=== PATIENT | female | born 1950 ===

== ENCOUNTER 2017-02-04 09:08 | Observation (INO) | payer MEDICARE, MEDICAID ==
[2017-02-04 09:08] VITALS: BMI 27.4
[2017-02-04 09:35] VITALS: TEMP 98.3
[2017-02-04] MEDS ORDERED: Morphine 4 mg/ml ISec IVP STA (10:36)
[2017-02-04] MEDS ORDERED: Sodium Chloride 0.9% 500 ML IV STA (10:36)
[2017-02-04] MEDS ORDERED: Morphine 2 mg/ml ISec IVP STA (10:41)
[2017-02-04 10:47] LABS: ADD MANUAL DIFF? NO
[2017-02-04 10:58] LABS: BASO # 0.01 [, K/mm3] (0.0-2.0); BASO % 0.2 % (0.0-3.0); EOS # 0.1 (0.0-0.7); EOS % 1.4 % (1.5-5.0); GRAN # 3.24 (1.4-6.5); GRAN % 62.7 % (50.0-68.0); HEMATOCRIT 37.5 % (36.0-48.0); LYMPH # 1.4 (1.2-3.4); LYMPH % 27.9 % (22.0-35.0); MEAN CELL VOLUME 86.2 fL (80.0-105.0); MEAN CORPUSCULAR HEMOGLOBIN 28.5 pg (25.0-35.0); MEAN CORPUSCULAR HGB CONC 33.1 g/dl (31.0-37.0); MONO # 0.4 (0.1-0.6); MONO % 7.8 % (1.0-6.0); PLATELET COUNT 141 [, 10^3/uL] (120.0-450.0); WHITE BLOOD COUNT 5.2 [, 10^3/ul] (4.5-11.0)
[2017-02-04 11:01] LABS: ALB/GLOB RATIO 1.1 (1.1-1.8); ALKALINE PHOSPHATASE 62 U/L (38-133); ALT/SGPT 44 U/L (7-56); AST/SGOT 36 U/L (15-39); BILIRUBIN,TOTAL 1.1 mg/dL (0.2-1.3); BLOOD UREA NITROGEN 19 mg/dL (7-21); CALCIUM 9.5 mg/dL (8.4-10.5); CARBON DIOXIDE 29 mmol/L (21-33); CHLORIDE 99 mmol/L (98-107); GFR AFRICAN-AMERICAN > 60; GLUCOSE,RANDOM 184 mg/dL (70-110); LIPASE 81 U/L (23-300); POTASSIUM 3.9 mmol/L (3.6-5.0); SODIUM 139 mmol/L (132-148); TOTAL PROTEIN 8.4 g/dL (5.8-8.3)
[2017-02-04 11:06] LABS: URINE APPEARANCE CLEAR (CLEAR); URINE BILIRUBIN NEGATIVE (NEGATIVE); URINE BLOOD NEGATIVE (NEGATIVE); URINE COLOR YELLOW (YELLOW); URINE GLUCOSE (UA) NEGATIVE (NEGATIVE); URINE KETONE NEGATIVE (NEGATIVE); URINE LEUKOCYTE ESTERASE NEGATIVE Leu/uL (NEGATIVE); URINE PROTEIN NEGATIVE mg/dL (<30 mg/dL); URINE UROBILINOGEN 0.2 E.U./dL (<1 E.U./dL)
[2017-02-04 11:09] LABS: INR 0.99 (0.93-1.08); PARTIAL THROMBOPLASTIN TIME 27.5 Seconds (23.7-30.8)
--- NOTE | 2017-02-04 12:21 | CT ---
PROCEDURE: CT HEAD WITHOUT CONTRAST. HISTORY: headache, h/o trauma COMPARISON: Comparison is made to the previous study dated 12/27/2015 TECHNIQUE: Axial computed tomography images were obtained through the head/brain without intravenous contrast. Radiation dose: Total exam DLP = 689.11 mGy-cm. This CT exam was performed using one or more of the following dose reduction techniques: Automated exposure control, adjustment of the mA and/or kV according to patient size, and/or use of iterative reconstruction technique. FINDINGS: HEMORRHAGE: No intracranial hemorrhage. BRAIN: No mass effect or edema. No atrophy or chronic microvascular ischemic changes. VENTRICLES: Unremarkable. No hydrocephalus. CALVARIUM: Unremarkable. PARANASAL SINUSES: Unremarkable as visualized. No significant inflammatory changes. MASTOID AIR CELLS: Unremarkable as visualized. No inflammatory changes. OTHER FINDINGS: None. IMPRESSION: No evidence of acute intracranial hemorrhage intracranial collection mass effect or midline shift.
[2017-02-04 12:22] VITALS: RESP 18; O2SAT 97
--- NOTE | 2017-02-04 12:37 | US ---
HISTORY: RUQ pain COMPARISON: None. TECHNIQUE: Sonographic evaluation of the abdomen. FINDINGS: LIVER: Measures 16.7 cm. Normal echogenicity of the liver parenchyma. No mass. No intrahepatic bile duct dilatation. GALLBLADDER: Unremarkable. No gallstones. COMMON BILE DUCT: Measures 2.9 mm. No stones. No dilatation. PANCREAS: Unremarkable as visualized. No mass. No ductal dilatation. RIGHT KIDNEY: Measures 8.7 x 3.7 x 5.7cm. Normal echogenicity. No calculus, mass, or hydronephrosis. LEFT KIDNEY: Measures 10.2 x 4.8 x 5.4cm. Normal echogenicity. No calculus, mass, or hydronephrosis. SPLEEN: Normal in size and contour. No mass. AORTA: No aneurysmal dilatation. IVC: Unremarkable. OTHER FINDINGS: None. IMPRESSION: No evidence of cholelithiasis or cholecystitis. No ultrasound evidence of acute pathology.
[2017-02-04 13:33] LABS: TROPONIN I < 0.01 ng/mL
--- NOTE | 2017-02-04 13:41 | ED PDOC ---
Arrival/HPI - General Chief Complaint: Abdominal Pain Time Seen by Provider: 02/04/17 09:44 Historian: Patient - History of Present Illness Narrative History of Present Illness (Text): 02/04/17 13:41 Patient with past medical history of diabetes, hypertension and high cholesterol , complains of 4 day history of intermittent right upper quadrant pain radiating to the upper abdomen associated with nausea and 2 episodes of vomiting last night. Patient reports having similar symptoms in the past however her symptoms currently are more intense than her prior episodes and are associated with urinary frequency and dysuria. Reports nothing makes the pain better or worse. Otherwise:(-) chest pain, (-) SOB, (-) diarrhea, (-) fever, (- ) melena, (-) hematochezia. Has history of prior abdominal surgery - hysterectomy. Patient also reports 5 day h/o constant throbbing headache which started when patient had fallen when she was trying to get out of the bus, states that she fell forward on the sidewalk hitting the right side of her forehead on the ground. States when the accident happened she was taken immediately to [facility], where she was evaluated, had a head CT which was normal and showed no acute findings. However headache continues to persist, she adds that she does take a baby aspirin daily. Otherwise: (-) LOC, (-) worse headache of life, (-) photophobia, (-) phonophobia, (-) URI symptoms, (-) subjective neurologic symptoms. Past Medical History - Provider Review Nursing Documentation Reviewed: Yes - Infectious Disease Hx of Infectious Diseases: None - Tetanus Immunization Tetanus Immunization: Unknown - Cardiac Hx Hypertension: Yes - Pulmonary Hx Respiratory Disorders: No - Neurological Hx Neurological Disorder: Yes HX Cerebrovascular Accident: Yes (9 yrs ago no deficits) - HEENT Hx Deafness: Yes (Left side hearing is diminished,) - Renal Hx Renal Disorder: No - Endocrine/Metabolic Hx Diabetes Mellitus Type 2: Yes - Hematological/Oncological Hx Blood Transfusions: No Hx Blood Transfusion Reaction: No - Integumentary Hx Dermatological Disorder: No - Musculoskeletal/Rheumatological Hx Musculoskeletal Disorders: No Hx Falls: No - Gastrointestinal Hx Gastrointestinal Disorders: No Hx Gastroesophageal Reflux: Yes - Genitourinary/Gynecological Hx Genitourinary Disorders: No - Psychiatric Hx Anxiety: Yes Hx Depression: Yes Hx Substance Use: No - Surgical History Hx Hysterectomy: Yes (1990 for fibroid) - Anesthesia Hx Anesthesia Reactions: No Hx Malignant Hyperthermia: No Family/Social History - Physician Review Nursing Documentation Reviewed: Yes Family/Social History: No Known Family HX Smoking Status: Never Smoked Hx Alcohol Use: No Hx Substance Use: No Allergies/Home Meds Allergies/Adverse Reactions: Allergies Penicillins Allergy (Verified 02/04/17 09:35) RASH Home Medications: Home Meds Medication Instructions Recorded Confirmed Aspirin [Ecotrin] 81 mg PO DAILY 12/26/15 02/04/17 Atorvastatin [Lipitor] 40 mg PO HS 12/26/15 02/04/17 MetFORMIN [glucoPHAGE] 1,000 mg PO BID 12/26/15 02/04/17 Olmesartan/Hydrochlorothiazide 1 tab PO DAILY 12/26/15 02/04/17 [Benicar Hct 40-12.5 mg Tablet] Mv,Min10/Folic Acid/D3/Ala/Lut 02/04/17 [Strovite One Caplet] Olmesartan/Hydrochlorothiazide 02/04/17 [Benicar Hct 20-12.5 mg Tablet] Pantoprazole [Protonix EC Tab] 40 02/04/17 Review of Systems - Review of Systems Constitutional: Normal. absent: Fatigue, Weight Change, Fevers Respiratory: Normal. absent: SOB, Cough, Sputum Cardiovascular: Normal. absent: Chest Pain, Palpitations, Edema Gastrointestinal: Normal, Abdominal Pain, Vomiting. absent: Stool Changes, Constipation, Appetite Changes Genitourinary Female: Normal, Dysuria, Frequency. absent: Hematuria Musculoskeletal: Normal. absent: Arthralgias, Back Pain, Neck Pain Skin: Normal. absent: Rash, Pruritis, Skin Lesions Neurological: Normal, Headache. absent: Dizziness, Focal Weakness, Gait Changes Physical Exam - Physical Exam Narrative Physical Exam (Text): 02/04/17 13:46 GENERAL APPEARANCE: Patient is awake, alert, oriented x 3, in no acute distress. SKIN: Warm, dry; (-) cyanosis. EYES: (-) conjunctival pallor, (-) scleral icterus. ENMT: Mucous membranes moist. NECK: (-) tenderness, (-) stiffness, (-) lymphadenopathy. CHEST AND RESPIRATORY: (-) rales, (-) rhonchi, (-) wheezes; breath sounds equal bilaterally. HEART AND CARDIOVASCULAR: (-) irregularity; (-) murmur, (-) gallop. ABDOMEN AND GI: (-) distention. Bowel sounds active; (+) minimal RUQ tenderness, (-) Ledesma's sign, (-) guarding, (-) rebound, (-) palpable masses, ( -) CVA tenderness. EXTREMITIES: (-) deformity, (-) edema, (+) distal pulses. NEURO AND PSYCH: GCS=15. Mental status as above. 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 EOMI. (-) facial asymmetry. Tongue and uvula midline. Strength 5/5 in all extremities. No gross sensory deficits. DTRs symmetric. Vital Signs Temp Pulse Resp BP Pulse Ox 02/04/17 12:21 85 18 113/91 H 97 02/04/17 10:11 82 11 L 157/73 H 99 02/04/17 09:29 98.3 F 85 18 162/97 H 97 Medical Decision Making ED Course and Treatment: 02/04/17 13:47 66 yo F with past medical history hypertension, diabetes and high cholesterol presents with right upper quadrant pain for 4 days, as well as continued headache despite negative head CT 5 days ago from fall. Plan: -- Labs -- IV fluids -- Urinalysis -- EKG -- CXR -- Morphine / Zofran / Pantoprazole -- Patient placed in ED observation for further evaluation and treatment -- CT head -- US ABD - Lab Interpretations Lab Results: 02/04/17 10:00 02/04/17 10:00 Lab Results 02/04/17 10:00: Sodium 139, Potassium 3.9, Chloride 99, Carbon Dioxide 29, Anion Gap 15, BUN 19, Creatinine 0.7, Est GFR ( Amer) > 60, Est GFR (Non- Af Amer) > 60, Random Glucose 184 H, Calcium 9.5, Total Bilirubin 1.1, AST 36, ALT 44, Alkaline Phosphatase 62, Troponin I < 0.01 D, Total Protein 8.4 H, Albumin 4.4, Globulin 4.0, Albumin/Globulin Ratio 1.1, Lipase 81 02/04/17 10:00: Urine Color Yellow, Urine Appearance Clear, Urine pH 6.0, Ur Specific [place] 1.025, Urine Protein Negative, Urine Glucose (UA) Negative, Urine Ketones Negative, Urine Blood Negative, Urine Nitrate Negative, Urine Bilirubin Negative, Urine Urobilinogen 0.2, Ur Leukocyte Esterase Negative 02/04/17 10:00: PT 10.7, INR 0.99, APTT 27.5 02/04/17 10:00: WBC 5.2, RBC 4.35, Hgb 12.4, Hct 37.5, MCV 86.2, MCH 28.5, MCHC 33.1, RDW 15.0 H, Plt Count 141, MPV 12.0 H, Gran % 62.7, Lymph % (Auto) 27.9, [place] % (Auto) 7.8 H, Eos % (Auto) 1.4 L, Baso % (Auto) 0.2, Gran # 3.24, Lymph # 1.4, [place] # 0.4, Eos # 0.1, Baso # 0.01 I have reviewed the lab results: Yes Interpretation: All labs normal - RAD Interpretation Narrative RAD Interpretations (Text): 02/04/17 12:58 CT head: FINDINGS: HEMORRHAGE: No intracranial hemorrhage. BRAIN: No mass effect or edema. No atrophy or chronic microvascular ischemic changes. VENTRICLES: Unremarkable. No hydrocephalus. CALVARIUM: Unremarkable. PARANASAL SINUSES: Unremarkable as visualized. No significant inflammatory changes. MASTOID AIR CELLS: Unremarkable as visualized. No inflammatory changes. OTHER FINDINGS: None. IMPRESSION: No evidence of acute intracranial hemorrhage intracranial collection mass effect or midline shift. 02/04/17 12:59 US abd: FINDINGS: LIVER: Measures 16.7 cm. Normal echogenicity of the liver parenchyma. No mass. No intrahepatic bile duct dilatation. GALLBLADDER: Unremarkable. No gallstones. COMMON BILE DUCT: Measures 2.9 mm. No stones. No dilatation. PANCREAS: Unremarkable as visualized. No mass. No ductal dilatation. RIGHT KIDNEY: Measures 8.7 x 3.7 x 5.7cm. Normal echogenicity. No calculus, mass, or hydronephrosis. LEFT KIDNEY: Measures 10.2 x 4.8 x 5.4cm. Normal echogenicity. No calculus, mass, or hydronephrosis. SPLEEN: Normal in size and contour. No mass. AORTA: No aneurysmal dilatation. IVC: Unremarkable. OTHER FINDINGS: None. IMPRESSION: No evidence of cholelithiasis or cholecystitis. No ultrasound evidence of acute pathology. Radiology Orders: 02/04/17 10:36 ABDOMEN COMPLETE [US] Stat 02/04/17 10:38 HEAD W/O CONTRAST [CT] Stat - Medication Orders Current Medication Orders: Discontinued Medications Sodium Chloride (Sodium Chloride 0.9%) 500 mls @ 1,000 mls/hr IV .Q30M STA Stop: 02/04/17 11:05 Last Admin: 02/04/17 11:09 Dose: 1,000 mls/hr Morphine Sulfate (Morphine) 2 mg IVP STAT STA Stop: 02/04/17 10:37 Last Admin: 02/04/17 11:18 Dose: Morphine Sulfate (Morphine) 2 mg IVP STAT STA Stop: 02/04/17 10:42 Last Admin: 02/04/17 11:10 Dose: 2 mg Ondansetron HCl (Zofran Inj) 4 mg IVP STAT STA Stop: 02/04/17 10:37 Last Admin: 02/04/17 11:10 Dose: 4 mg Pantoprazole Sodium (Protonix Inj) 40 mg IVP STAT STA Stop: 02/04/17 10:37 Last Admin: 02/04/17 11:10 Dose: 40 mg ED OBSERVATION Date of observation admission: 02/04/17 Time of observation admission: 10:40 - Observation admission statement Patient is being placed in observation because:: To obtain labs, US abd and CT head. - Goals of Observation Goals of observation are:: To observe the patient's symptoms and response to treatment. - Progress Note Progress Note: 02/04/17 12:30 Labs reviewed and are within normal limits. EKG: NSR at 83 bpm, (-) acute ST changes, as read by JOSE. CT head and ultrasound results of the abdomen still pending at this time. On reevaluation, patient reports improvement of her symptoms, patient is laying in bed comfortably in no acute distress. 02/04/17 14:31 On reevaluation, patient reports significant improvement of her symptoms. Patient reports no headache or abdominal pain at this time. Denies any nausea or vomiting, on exam, patient remains awake, alert, oriented 3. Abdomen remains soft with no tenderness, no guarding, no rebound, negative Ledesma sign. Repeat neuro exam shows no focal findings. CT head negative, ultrasound of the abdomen was within normal limits. Based on history, exam and diagnostic results plan will be for outpatient follow -up. Prescription provided. Patient states she fully agrees with and understands discharge instructions. States that she agrees with the plan and disposition. Verbalized and repeated discharge instructions and plan. I have given the patient opportunity to ask any additional questions. Follow up with primary care physician in 1-2 days without fail. Advised to take medication as prescribed. Return to the emergency room at any time for any new or worsening symptoms. 02/04/17 14:34 - PA / LAYER OUT PLATE GLASS / Resident Statement MD/DO has reviewed & agrees with the documentation as recorded. Disposition/Present on Arrival - Present on Arrival Any Indicators Present on Arrival: No History of DVT/PE: No History of Uncontrolled Diabetes: No Urinary Catheter: No History of Decub. Ulcer: No History Surgical Site Infection Following: None - Disposition Have Diagnosis and Disposition been Completed?: Yes Diagnosis: Abdominal pain, Dyspepsia, Headache Disposition: HOME/ ROUTINE Disposition Time: 14:35 Patient Plan: Discharge Condition: IMPROVED Discharge Instructions (ExitCare): Abdominal Pain (ED), Chronic Indigestion (ED ), Acute Headache (ED) Print Language: SRI LANK[place] Additional Instructions: Thank you for letting us take care of you today. You were treated for abdominal pain likely dyspepsia, headache, history of recent head injury. The emergency medical care you received today was directed at your acute symptoms. If you were prescribed any medication, please fill it and take as directed. It may take several days for your symptoms to resolve. Return to the Emergency Department if your symptoms worsen, do not improve, or if you have any other problems. Please contact your doctor in 2 days for re-evaluation and follow up. Bring any paperwork you were given at discharge with you along with any medications you are taking to your follow up visit. Our treatment cannot replace ongoing medical care by a primary care provider (PCP) outside of the emergency department. Thank you for allowing the [facility] team to be part of your care today. Prescriptions: Famotidine [Pepcid] 40 mg PO DAILY #20 tablet Olopatadine 0.1% Opht [Patanol 5 Ml] 1 drop OP DAILY #1 bottle Ondansetron ODT [Zofran ODT] 4 mg PO DAILY PRN #20 odt PRN Reason: Nausea/Vomiting Referrals: Charly Davidson MD [Primary Care Provider] - Follow up with primary
--- NOTE | 2017-02-04 14:05 | CARD ---
APPROVED REPORT EKG Measurement Heart [id number] <Conclusion> Normal sinus rhythm Nonspecific T wave abnormality Small q in 3 Prolonged QT
[2017-02-04 14:52] VITALS: BP 148/87; PULSE 78
== END 2017-02-04 14:35 | disposition home or self-care (01) ==
LOC: ED 09:08 → EROBSV 10:40
PROVIDERS: ADMIT Emergency Medicine; ATTEND Emergency Medicine
DX: R10.13 Epigastric pain (principal); R51 Headache; I10 Essential (primary) hypertension; E11.9 Type 2 diabetes mellitus without complications; Z86.73 Personal history of transient ischemic attack (TIA), and cerebral infarction without residual deficits
CPT/HCPCS: 70450; 76700; 80053; 81003; 83690; 84484; 85025; 85610; 85730; 87086; 93005; 96374; 96375; 99284; C9113; G0378; J2270; J2405; J7040

== ENCOUNTER 2018-08-11 08:42 | Emergency (ER) | payer MEDICARE, MEDICAID ==
[2018-08-11 08:43] VITALS: BMI 27.4
[2018-08-11] MEDS ORDERED: Albuterol-Ipratrop 3 mg / 0.5 (3 ml) UD IH STA (09:04)
--- NOTE | 2018-08-11 09:19 | ED PDOC ---
Arrival/HPI - General Chief Complaint: Cough, Cold, Congestion Time Seen by Provider: 08/11/18 08:45 Historian: Patient - History of Present Illness Narrative History of Present Illness (Text): 08/11/18 09:06 67 y/o female, with past medical history of asthma, diabetes, hypertension and high cholesterol, presents to the Emergency department complaining of productive cough since Saturday. Patient informs yellowish phlegm with coughing associated with subjective fever and sore throat. Patient states intermittent right sided flank pain induced by coughing but denies any other somatic complaints. Patient denies any headache, dizziness, chest pain, shortness of breath, dyspnea on exertion, abdominal pain, nausea, vomiting, diarrhea, neck pain, or any other complaint. Patient denies having the flu shot this year. PMD: Dr. Isaac Time/Duration: < week Symptom Onset: Gradual Symptom Course: Unchanged Activities at Onset: Light Context: Home Past Medical History - Provider Review Nursing Documentation Reviewed: Yes - Infectious Disease Hx of Infectious Diseases: None - Tetanus Immunization Tetanus Immunization: Unknown - Cardiac Hx Hypertension: Yes - Pulmonary Hx Respiratory Disorders: No - Neurological Hx Neurological Disorder: Yes HX Cerebrovascular Accident: Yes (9 yrs ago no deficits) - HEENT Hx Deafness: Yes (Left side hearing is diminished,) - Renal Hx Renal Disorder: No - Endocrine/Metabolic Hx Diabetes Mellitus Type 2: Yes - Hematological/Oncological Hx Blood Transfusions: No Hx Blood Transfusion Reaction: No - Integumentary Hx Dermatological Disorder: No - Musculoskeletal/Rheumatological Hx Musculoskeletal Disorders: No Hx Falls: No - Gastrointestinal Hx Gastrointestinal Disorders: No Hx Gastroesophageal Reflux: Yes - Genitourinary/Gynecological Hx Genitourinary Disorders: No - Psychiatric Hx Anxiety: Yes Hx Depression: Yes Hx Substance Use: No - Surgical History Hx Hysterectomy: Yes (1990 for fibroid) - Anesthesia Hx Anesthesia Reactions: No Hx Malignant Hyperthermia: No Family/Social History - Physician Review Nursing Documentation Reviewed: Yes Family/Social History: Unknown Family HX Smoking Status: Never Smoked Hx Alcohol Use: No Hx Substance Use: No Allergies/Home Meds Allergies/Adverse Reactions: Allergies Penicillins Allergy (Verified 02/04/17 09:35) RASH Home Medications: Home Meds Medication Instructions Recorded Confirmed Aspirin [Ecotrin] 81 mg PO DAILY 12/26/15 02/04/17 Atorvastatin [Lipitor] 40 mg PO HS 12/26/15 02/04/17 MetFORMIN [glucoPHAGE] 1,000 mg PO BID 12/26/15 02/04/17 Olmesartan/Hydrochlorothiazide 1 tab PO DAILY 12/26/15 02/04/17 [Benicar Hct 40-12.5 mg Tablet] Mv,Min10/Folic Acid/D3/Ala/Lut 02/04/17 [Strovite One Caplet] Olmesartan/Hydrochlorothiazide 02/04/17 [Benicar Hct 20-12.5 mg Tablet] Pantoprazole [Protonix EC Tab] 40 02/04/17 Review of Systems - Physician Review All systems were reviewed & negative as marked: Yes - Review of Systems Constitutional: Fevers ENT: Sore Throat. absent: Sinus Congestion Respiratory: Cough. absent: SOB Cardiovascular: absent: Chest Pain, [place] Gastrointestinal: absent: Abdominal Pain, Diarrhea, Nausea, Vomiting Genitourinary Female: absent: Dysuria, Urine Output Changes Musculoskeletal: absent: Neck Pain Skin: absent: Rash Neurological: absent: Headache, Dizziness Psychiatric: absent: Anxiety, Depression Physical Exam Appearance: Positive for: Well-Appearing, Non-Toxic, Comfortable Pain Distress: None Mental Status: Positive for: Alert and Oriented X 3 - Systems Exam Head: Present: Atraumatic, Normocephalic Pupils: Present: PERRL Extroacular Muscles: Present: EOMI Conjunctiva: Present: Other (Scleral injection. Watery discharge from bilateral eyes.) Mouth: Present: Moist Mucous Membranes Pharnyx: Present: ERYTHEMA (minimal erythema to soft palate). No: EXUDATE, TONSILS ENLARGED, Peritonsilar Swelling Nose (External): Present: Other (No sinus pressure) Neck: Present: Normal Range of Motion Respiratory/Chest: Present: Good Air Exchange, Wheezes, Other (Mildly congested. ). No: Respiratory Distress, Accessory Muscle Use Cardiovascular: Present: Regular Rate and Rhythm, Normal S1, S2. No: Murmurs Abdomen: No: Tenderness, Distention, Peritoneal Signs Back: Present: Normal Inspection Upper Extremity: Present: Normal Inspection. No: Cyanosis, Edema Lower Extremity: Present: Normal Inspection. No: Edema Neurological: Present: GCS=15, CN II-XII Intact, Speech Normal Skin: Present: Warm, Dry, Normal Color. No: Rashes Psychiatric: Present: Alert, Oriented x 3, Normal Insight, Normal Concentration Medical Decision Making ED Course and Treatment: 08/11/18 09:06 Impression: 67 year old female presents to the Emergency department complaining of productive cough since Saturday. Differential Diagnosis included but are not limited to: Viral Pharyngitis Bronchitis Pneumonia Plan: -- EKG -- Duoneb -- Prednisone -- Influenza AB -- Reassess and disposition Prior Visits: Notes and results from previous visits were reviewed. Progress Notes: 08/11/18 09:51 Rapid flu negative with patient reassessed and feeling much better. She admits to not having a rescue inhaler in her possession and will need a refill. Shared decision making for patient to follow up with her PCP and will continue supportive therapy at home. Scripts provided. She is stable for discharge. - Medication Orders Current Medication Orders: Albuterol/Ipratropium (Duoneb 3 Mg/0.5 Mg (3 Ml) Ud) 3 ml IH STAT STA Stop: 08/11/18 09:05 Prednisone (Prednisone Tab) 60 mg PO STAT ONE Stop: 08/11/18 09:05 - Scribe Statement The provider has reviewed the documentation as recorded by the Scribe Matthew Gibbs. All medical record entries made by the Scribe were at my direction and personally dictated by me. I have reviewed the chart and agree that the record accurately reflects my personal performance of the history, physical exam, medical decision making, and the department course for this patient. I have also personally directed, reviewed, and agree with the discharge instructions and disposition. Disposition/Present on Arrival - Present on Arrival Any Indicators Present on Arrival: No History of DVT/PE: No History of Uncontrolled Diabetes: No Urinary Catheter: No History of Decub. Ulcer: No History Surgical Site Infection Following: None - Disposition Have Diagnosis and Disposition been Completed?: Yes Diagnosis: Bronchitis, Cough Disposition: HOME/ ROUTINE Disposition Time: 09:56 Patient Plan: Discharge Condition: IMPROVED Discharge Instructions (ExitCare): Acute Bronchitis, Adult (DC), Viral Upper Respiratory Infection, Adult (DC) Print Language: [place] Additional Instructions: All medical record entries made by the Scribe were at my direction and personally dictated by me. I have reviewed the chart and agree that the record accurately reflects my personal performance of the history, physical exam, medical decision making, and the department course for this patient. I have also personally directed, reviewed, and agree with the discharge instructions and disposition. Prescriptions: Albuterol HFA [Ventolin HFA 90 mcg/actuation (8 g)] 2 puff IH [id number] #200 puff Methylprednisolone [Medrol Dose Pack (21 tabs)] 4 mg PO DAILY #21 mg Referrals: Petra Longoria DO [Primary Care Provider] - Follow up with primary Forms: [employer] (Sammarinese)
[2018-08-11] MEDS ORDERED: guaiFENesin 200 mg/10 ml Syrup UD PO ONE (09:49)
[2018-08-11 10:20] VITALS: TEMP 98.8; O2SAT 99
[2018-08-11 11:39] VITALS: BP 180/85; PULSE 80; RESP 16
--- NOTE | 2018-08-11 13:29 | CARD ---
APPROVED REPORT Date of service: 08/11/2018 EKG Measurement Heart [id number] <Conclusion> Normal sinus rhythm Nonspecific ST and T wave abnormality in lateral leads Abnormal ECG
== END 2018-08-11 12:29 | disposition home or self-care (01) ==
LOC: ED 08:42
DX: J40 Bronchitis, not specified as acute or chronic (principal); I10 Essential (primary) hypertension

== ENCOUNTER 2019-01-09 07:44 | Emergency (ER) | payer MEDICARE, MEDICAID ==
[2019-01-09 07:50] VITALS: BMI 27.8
[2019-01-09 07:54] VITALS: TEMP 98.5
--- NOTE | 2019-01-09 08:14 | ED PDOC ---
Arrival/HPI - General Chief Complaint: Eye Problem Time Seen by Provider: 01/09/19 08:02 - History of Present Illness Narrative History of Present Illness (Text): 68 yr old female w/ hx of CABG x4, HTN p/w b/l eye redness. Pt notes symptoms started 3 days ago, no trauma or fall to eye. No difficulty with vision. No eye pain. No headache, nausea or vomiting. Pt also notes mild sore throat, but no change in phonation, difficulty swallowing or sob. Pt notes mild ear pain b/l described as pressure but denies any pain behind hear or redness. No neck stiffness. No other complaints. 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,) - Renal Hx Renal Disorder: No - Endocrine/Metabolic Hx Diabetes Mellitus Type 2: Yes - Hematological/Oncological Hx Blood Transfusions: No Hx Blood Transfusion Reaction: No - Integumentary Hx Dermatological Disorder: No - Musculoskeletal/Rheumatological Hx Musculoskeletal Disorders: No - Gastrointestinal Hx Gastrointestinal Disorders: No Hx Gastroesophageal Reflux: Yes - Genitourinary/Gynecological Hx Genitourinary Disorders: No - Psychiatric Hx Anxiety: Yes Hx Depression: Yes Hx Substance Use: No - Surgical History Hx Hysterectomy: Yes (1990 for fibroid) Other/Comment: open heart surgery 4 vessels - Anesthesia Hx Anesthesia Reactions: No Hx Malignant Hyperthermia: No Family/Social History Family/Social History: Unknown Family HX Smoking Status: Never Smoked Hx Alcohol Use: No Hx Substance Use: No Allergies/Home Meds Allergies/Adverse Reactions: Allergies Penicillins Allergy (Verified 02/04/17 09:35) RASH Home Medications: Home Meds Medication Instructions Recorded Confirmed Aspirin [Ecotrin] 81 mg PO DAILY 12/26/15 02/04/17 Atorvastatin [Lipitor] 40 mg PO HS 12/26/15 02/04/17 MetFORMIN [glucoPHAGE] 1,000 mg PO BID 12/26/15 02/04/17 Olmesartan/Hydrochlorothiazide 1 tab PO DAILY 12/26/15 02/04/17 [Benicar Hct 40-12.5 mg Tablet] Mv,Min10/Folic Acid/D3/Ala/Lut 02/04/17 [Strovite One Caplet] Olmesartan/Hydrochlorothiazide 02/04/17 [Benicar Hct 20-12.5 mg Tablet] Pantoprazole [Protonix EC Tab] 40 02/04/17 Review of Systems - Review of Systems Constitutional: Normal. absent: Fatigue, Weight Change, Fevers Eyes: Other (pink eye). absent: Vision Changes, Photophobia, Eye Pain ENT: Sore Throat, Other. absent: Hearing Changes, Tinnitus, TMJ Pain, Voice Changes, Rhinorrhea, Epistaxis, Sinus Congestion (b/l ear fullness) Respiratory: absent: SOB, Sputum Cardiovascular: absent: Chest Pain, Palpitations, Edema, Calf Pain Gastrointestinal: absent: Abdominal Pain, Stool Changes, Nausea, Vomiting, Appetite Changes Genitourinary Female: absent: Dysuria, Frequency, Hematuria Musculoskeletal: absent: Arthralgias, Back Pain, Neck Pain Skin: absent: Rash, Pruritis, Skin Lesions Neurological: absent: Headache, Dizziness, Focal Weakness Endocrine: absent: Diaphoresis, Polyuria, Polydipsia Hemo/Lymphatic: absent: Adenopathy Physical Exam Vital Signs Temp Pulse Resp BP Pulse Ox 01/09/19 07:44 98.5 F 76 18 187/99 H 98 Temperature: Afebrile Blood Pressure: Normal Pulse: Regular Respiratory Rate: Normal Pain Distress: None Mental Status: Positive for: Alert and Oriented X 3 - Systems Exam Head: Present: Atraumatic, Normocephalic Pupils: Present: PERRL, Other (20/20 vision b/l. mild pink eye noted to b/l eyes. No hyphema. No yellow d/c noted. no pain with eye movement. No periorbital swelling or erythema). No: Pinpoint Extroacular Muscles: Present: EOMI. No: Gaze Palsy, Entrapment Conjunctiva: Present: Normal Ears: Present: Normal, NORMAL TM. No: Erythema, TM Bulging, Fluid Mouth: Present: Moist Mucous Membranes, Dry, Normal Lips. No: Drooling, Trismus Pharnyx: Present: Normal. No: ERYTHEMA, EXUDATE, TONSILS ENLARGED, Peritonsilar Swelling, Uvular Deviation, Muffled/Hoarse Voice, Strider Nose (External): Present: Atraumatic. No: Abrasion, Contusion, Laceration Nose (Internal): Present: Normal Inspection, No Active Bleeding. No: Moist, Engorged Neck: Present: Normal Range of Motion. No: Meningeal Signs, MIDLINE TENDERNESS Respiratory/Chest: Present: Clear to Auscultation, Good Air Exchange. No: Respiratory Distress Cardiovascular: Present: Regular Rate and Rhythm, Normal S1, S2. No: Murmurs Abdomen: Present: Normal Bowel Sounds. No: Tenderness, Distention, Peritoneal Signs Back: Present: Normal Inspection. No: CVA Tenderness, Midline Tenderness Upper Extremity: Present: Normal Inspection, Normal ROM, NORMAL PULSES, Neurovascularly Intact. No: Cyanosis, Edema Lower Extremity: Present: Normal Inspection, NORMAL PULSES, Neurovascularly Intact, Capillary Refill < 2 s. No: Edema, CALF TENDERNESS Neurological: Present: GCS=15, CN II-XII Intact, Speech Normal Skin: Present: Warm, Dry, Normal Color. No: Rashes Psychiatric: Present: Alert, Oriented x 3, Normal Insight Medical Decision Making ED Course and Treatment: 68 yr old F w/ hx of CABG, HTN p/w b/l pink eye. No signs of periorbital cellulitis. Normal vision. PERRLA, EOMI without pain. B/L ear exam unremarkable. No TM redness or canal redness. No auricular or mastoid erythema or pain. Oropharynx clear, no swelling noted. No erythema. No dysphagia, change in phonation or odynophagia. No ludwigs or swelling noted. No posterior auricular or cervical node enlarged lymph noted. No CP or SOB or abdominal pain. She notes she did not take her BP medications this morning. Will rx with benicar and reassess bp. 01/09/19 08:25 no benicar availabe will rx with clonidine 01/09/19 09:15 strep negative pending improved pressure 01/09/19 09:36 pressure improved 175/91 EOMI, remains w/ out eomi pain, mastoid redness or pain or oropharynx pain or abnl clear for d/c home with return indications and f/u. Pt agreeable to plan. Disposition/Present on Arrival - Present on Arrival Any Indicators Present on Arrival: No History of DVT/PE: No History of Uncontrolled Diabetes: No Urinary Catheter: No History of Decub. Ulcer: No History Surgical Site Infection Following: None - Disposition Have Diagnosis and Disposition been Completed?: Yes Diagnosis: Conjunctivitis Disposition: HOME/ ROUTINE Disposition Time: 09:10 Patient Problems: Current Active Problems Problem Status Onset Conjunctivitis Acute Condition: STABLE Discharge Instructions (ExitCare): Conjunctivitis ([place]) (DC) Additional Instructions: RETURN IF YOU HAVE ANY VISION ISSUES, PAIN WITH EYE MOVEMENT OR ANY OTHER ISSUES. SEE AN EYE DOCTOR WE HAVE RECCOMENDED SOON POSSIBLE ROBERTH MACIEL, thank you for letting us take care of you today. Your provider was Ezequiel Izaguirre and you were treated for pink eye. The emergency medical care you received today was directed at your acute symptoms. If you were prescribed any medication, please fill it and take as directed. It may take several days for your symptoms to resolve. Return to the Emergency Department if your symptoms worsen, do not improve, or if you have any other problems. Please contact your doctor or call one of the physicians/clinics you have been referred to that are listed on the Patient Visit Information form that is included in your discharge packet. Bring any paperwork you were given at discharge with you along with any medications you are taking to your follow up visit. Our treatment cannot replace ongoing medical care by a primary care provider outside of the emergency department. Thank you for allowing the [facility] team to be part of your care today. If you had an X-Ray or CT scan: A Radiologist will review the ED reading if any change in treatment is needed we will contact you. If you had a blood, urine, or wound culture: It will take several days for the results, if any change in treatment is needed we will contact you. If you had an STI test: It will take 48 hours for the results. Please call after 1 week if you have not heard back. Prescriptions: Polymyxin/Trimethoprim Sulfate [Polytrim Ophth Soln] 2 drop BOTHEYES Q6H 7 Days #1 bottle Referrals: Charly Davidson MD [Primary Care Provider] - Follow up with primary Eric Simmons MD [Staff Provider] - Follow up with primary Andi Gibbs DO [Staff Provider] - Follow up with primary [facility] [Outside] - Follow up with primary [facility] [Outside] - Follow up with primary [facility] [Outside] - Follow up with primary Forms: [facility] (Amharic)
[2019-01-09 08:56] VITALS: RESP 16
[2019-01-09 09:40] VITALS: BP 161/74; PULSE 75
[2019-01-09 09:42] VITALS: O2SAT 99
== END 2019-01-09 09:41 | disposition home or self-care (01) ==
LOC: ED 07:44
DX: H10.9 Unspecified conjunctivitis (principal)

== ENCOUNTER 2019-01-23 06:08 | Emergency (ER) | payer MEDICARE, MEDICAID ==
[2019-01-23 06:20] VITALS: TEMP 97.8; BMI 29.0
[2019-01-23] MEDS ORDERED: guaiFENesin 200 mg/10 ml Syrup UD PO ONE (07:02)
--- NOTE | 2019-01-23 07:18 | ED PDOC ---
Arrival/HPI - General Chief Complaint: Flu-like Symptoms Historian: Patient - History of Present Illness Narrative History of Present Illness (Text): 01/23/19 07:22 68 year old female, with a past medical history of hypertension, asthma, diabetes, hypertension, who presents to the emergency department complaining of productive coughing for 1 week. Patient reports yellow phlegm, and endorses red streaks with continuos coughing. She also endorses congestion, chest pain and a subjective fever. Patient denies any shortness of breath, chills, nausea, v omiting, headaches, dizziness, or any other somatic complaints. She also denies using an inhaler. Patient reports compliance with her hypertension medications. PMD: Dr. Davidson Time/Duration: 1 week Symptom Onset: Gradual Symptom Course: Unchanged Activities at Onset: Light Context: Home Past Medical History - Provider Review Nursing Documentation Reviewed: Yes Primary Care Physician: Charly Davidson MD - Infectious Disease Hx of Infectious Diseases: None - Tetanus Immunization Tetanus Immunization: Unknown - Cardiac Hx Cardiac Disorders: Yes Hx Hypertension: Yes - Pulmonary Hx Respiratory Disorders: No - Neurological Hx Neurological Disorder: Yes HX Cerebrovascular Accident: Yes (9 yrs ago no deficits) - HEENT Hx Deafness: Yes (Left side hearing is diminished,) - Renal Hx Renal Disorder: No - Endocrine/Metabolic Hx Endocrine Disorders: Yes Hx Diabetes Mellitus Type 2: Yes - Hematological/Oncological Hx Blood Transfusions: No Hx Blood Transfusion Reaction: No - Integumentary Hx Dermatological Disorder: No - Musculoskeletal/Rheumatological Hx Musculoskeletal Disorders: No - Gastrointestinal Hx Gastrointestinal Disorders: No Hx Gastroesophageal Reflux: Yes - Genitourinary/Gynecological Hx Genitourinary Disorders: No - Psychiatric Hx Psychophysiologic Disorder: Yes Hx Anxiety: Yes Hx Depression: Yes Hx Substance Use: No - Surgical History Hx Hysterectomy: Yes (1990 for fibroid) Hx Open Heart Surgery: Yes (2017) Other/Comment: open heart surgery 4 vessels - Anesthesia Hx Anesthesia Reactions: No Hx Malignant Hyperthermia: No Family/Social History - Physician Review Nursing Documentation Reviewed: Yes Family/Social History: Unknown Family HX Smoking Status: Never Smoked Hx Alcohol Use: No Hx Substance Use: No Allergies/Home Meds Allergies/Adverse Reactions: Allergies Penicillins Allergy (Verified 01/23/19 06:21) RASH Home Medications: Home Meds Medication Instructions Recorded Confirmed Aspirin [Ecotrin] 81 mg PO DAILY 12/26/15 01/23/19 Atorvastatin [Lipitor] 40 mg PO HS 12/26/15 01/23/19 MetFORMIN [glucoPHAGE] 1,000 mg PO BID 12/26/15 01/23/19 Mv,Min10/Folic Acid/D3/Ala/Lut 1 cap PO DAILY 02/04/17 01/23/19 [Strovite One Caplet] Olmesartan/Hydrochlorothiazide 1 tab PO DAILY 02/04/17 01/23/19 [Benicar Hct 20-12.5 mg Tablet] Pantoprazole [Protonix EC Tab] 40 mg PO DAILY 01/23/19 01/23/19 Review of Systems - Physician Review All systems were reviewed & negative as marked: Yes - Review of Systems Constitutional: Fevers Respiratory: Cough. absent: SOB Cardiovascular: Chest Pain Gastrointestinal: absent: Abdominal Pain, Nausea, Vomiting Musculoskeletal: absent: Back Pain, Neck Pain Neurological: absent: Headache, Dizziness Endocrine: absent: Diaphoresis Physical Exam Vital Signs Reviewed: Yes Vital Signs Temp Pulse Resp BP Pulse Ox 01/23/19 06:19 97.8 F 65 18 179/81 H 97 Temperature: Afebrile Blood Pressure: Hypertensive Pulse: Regular Respiratory Rate: Normal Appearance: Positive for: Well-Appearing, Non-Toxic, Comfortable Pain Distress: None Mental Status: Positive for: Alert and Oriented X 3 - Systems Exam Head: Present: Atraumatic, Normocephalic Pupils: Present: PERRL Extroacular Muscles: Present: EOMI Conjunctiva: Present: Normal Mouth: Present: Moist Mucous Membranes Neck: Present: Normal Range of Motion Respiratory/Chest: Present: Clear to Auscultation, Good Air Exchange, Other (+ coarse breath sounds.). No: Respiratory Distress, Accessory Muscle Use Cardiovascular: Present: Regular Rate and Rhythm, Normal S1, S2. No: Murmurs Abdomen: No: Tenderness, Distention, Peritoneal Signs Back: Present: Normal Inspection Upper Extremity: Present: Normal Inspection. No: Cyanosis, Edema Lower Extremity: Present: Normal Inspection. No: Edema Neurological: Present: GCS=15, Speech Normal Skin: Present: Warm, Dry, Normal Color. No: Rashes Psychiatric: Present: Alert, Oriented x 3, Normal Insight, Normal Concentration Medical Decision Making ED Course and Treatment: 01/23/19 07:18 Impression: 68 year old female presents to the emergency department complaining of coughing and congestion x 1 week Differential Diagnosis included but are not limited to: Bronchitis PNA Plan: -- Labs -- Chest X-ray -- Duoneb -- Robitussin -- Prednisone -- Urinalysis -- Reassess and disposition Prior Visits: Notes and results from previous visits were reviewed. Progress Notes: 01/23/19 08:35 Labs reviewed with no evidence of leukocytosis. - Lab Interpretations Lab Results: 01/23/19 07:15 01/23/19 07:41 Lab Results 01/23/19 07:41: Sodium 141, Potassium 3.5 L, Chloride 104, Carbon Dioxide 27, Anion Gap 14, BUN 16, Creatinine 0.9, Est GFR ( Amer) > 60, Est GFR (Non- Af Amer) > 60, Random Glucose 100, Calcium 9.0, Magnesium 1.9, Total Bilirubin 0.9, AST 34, ALT 33, Alkaline Phosphatase 82, Troponin I < 0.01, Total Protein 8.4 H, Albumin 4.3, Globulin 4.1, Albumin/Globulin Ratio 1.0 L 01/23/19 07:41: Urine Color Yellow, Urine Appearance Clear, Urine pH 7.0, Ur Specific Elbert 1.020, Urine Protein 100 H, Urine Glucose (UA) Negative, Urine Ketones Negative, Urine Blood Negative, Urine Nitrate Negative, Urine Bilirubin Negative, Urine Urobilinogen 1.0 H, Ur Leukocyte Esterase Negative, Urine RBC 1 - 3 H, Urine WBC 2 - 5, Ur Epithelial Cells 6 - 8 H, Amorphous Sediment Few, Urine Bacteria Many, Hyaline Casts 0 - 2, Fine Granular Casts 0 - 2, Urine Other Uyeast 01/23/19 07:15: WBC 6.5, RBC 4.75, Hgb 13.6, Hct 40.5, MCV 85.3, MCH 28.6, MCHC 33.6, RDW 14.8 H, Plt Count 163, MPV 12.4 H, Neut % (Auto) 50.8, Lymph % (Auto) 33.2, [place] % (Auto) 10.6 H, Eos % (Auto) 4.9, Baso % (Auto) 0.5, Lymph # (Auto) 2.2, [place] # (Auto) 0.7 H, Eos # (Auto) 0.3, Baso # (Auto) 0.03, Absolute Neuts (auto) 3.32 I have reviewed the lab results: Yes - RAD Interpretation Narrative RAD Interpretations (Text): 01/23/19 12:44 Chest X-ray reviewed by Hanna Hollingsworth, shows: No active disease. Radiology Orders: 01/23/19 06:59 CHEST PORTABLE [RAD] Stat Service Developer: Radiologist - Medication Orders Current Medication Orders: Guaifenesin (Robitussin) 200 mg PO Q4H ONE Stop: 01/23/19 07:03 - Scribe Statement The provider has reviewed the documentation as recorded by the Scribe Tanner Sy All medical record entries made by the Scribe were at my direction and per sonally dictated by me. I have reviewed the chart and agree that the record accurately reflects my personal performance of the history, physical exam, medical decision making, and the department course for this patient. I have also personally directed, reviewed, and agree with the discharge instructions and disposition. Disposition/Present on Arrival - Present on Arrival Any Indicators Present on Arrival: No History of DVT/PE: No History of Uncontrolled Diabetes: No Urinary Catheter: No History of Decub. Ulcer: No History Surgical Site Infection Following: None - Disposition Have Diagnosis and Disposition been Completed?: Yes Diagnosis: Bronchitis Disposition: HOME/ ROUTINE Disposition Time: 08:42 Patient Plan: Discharge Condition: IMPROVED Discharge Instructions (ExitCare): Acute Bronchitis, Adult (DC) Print Language: SYRIAC Additional Instructions: All medical record entries made by the Scribe were at my direction and personally dictated by me. I have reviewed the chart and agree that the record accurately reflects my personal performance of the history, physical exam, medical decision making, and the department course for this patient. I have also personally directed, reviewed, and agree with the discharge instructions and disposition. Please follow up with your PCP Please take your medications as prescribed Prescriptions: guaiFENesin [guaifENESIN] 100 mg PO Q4H #50 udc Methylprednisolone [Medrol Dose Pack (21 tabs)] 4 mg PO DAILY #21 mg Referrals: Charly Davidson MD [Primary Care Provider] - Follow up with primary Forms: [employer] (Gabonese)
[2019-01-23 07:27] LABS: BASO # 0.03 K/mm3 (0.0-2.0); BASO % 0.5 % (0.0-3.0); EOS # 0.3 (0.0-0.7); EOS % 4.9 % (1.5-5.0); HEMOGLOBIN 13.6 g/dL (12.0-16.0); LYMPH # 2.2 (1.2-3.4); LYMPH % 33.2 % (22.0-35.0); MEAN CELL VOLUME 85.3 fl (80.0-105.0); MEAN CORPUSCULAR HEMOGLOBIN 28.6 pg (25.0-35.0); MEAN CORPUSCULAR HGB CONC 33.6 g/dl (31.0-37.0); MEAN PLATELET VOLUME 12.4 fl (7.0-11.0); MONO # 0.7 (0.1-0.6); MONO % 10.6 % (1.0-6.0); RBC 4.75 10^6/uL (3.5-6.1); RED CELL DISTRIBUTION WIDTH 14.8 % (11.5-14.5); WHITE BLOOD COUNT 6.5 10^3/uL (4.5-11.0)
[2019-01-23] MEDS: Albuterol-Ipratrop 3 mg / 0.5 (3 ml) UD IH SCH ×3 (07:32→08:11)
[2019-01-23 07:50] VITALS: RESP 16
[2019-01-23 07:50] LABS: URINE APPEARANCE CLEAR (CLEAR); URINE BILIRUBIN NEGATIVE (NEGATIVE); URINE BLOOD NEGATIVE (NEGATIVE); URINE COLOR YELLOW (YELLOW); URINE GLUCOSE (UA) NEGATIVE (NEGATIVE); URINE LEUKOCYTE ESTERASE NEGATIVE Leu/uL (NEGATIVE); URINE PROTEIN 100 mg/dL (<30 mg/dL)
[2019-01-23 07:53] LABS: URINE BACTERIA MANY /hpf; URINE FINE GRANULAR CAST 0 - 2 /hpf; URINE HYALINE CAST 0 - 2 /hpf
[2019-01-23 07:54] LABS: URINE AMORPHOUS SEDIMENT FEW /hpf
[2019-01-23 08:02] LABS: ALBUMIN 4.3 g/dL (3.0-4.8); ALT/SGPT 33 U/L (7-56); AST/SGOT 34 U/L (14-36); BLOOD UREA NITROGEN 16 mg/dL (7-21); GFR NON-AFRICAN AMERICAN > 60
[2019-01-23 08:12] LABS: TROPONIN I < 0.01 ng/mL
[2019-01-23] MEDS ORDERED: Bupivacaine 0.5% 50 ML IJ ONE (08:47)
[2019-01-23 09:22] VITALS: BP 175/89; PULSE 76; O2SAT 98
--- NOTE | 2019-01-23 09:34 | RAD ---
Date of service: 01/23/2019 HISTORY: cough COMPARISON: 02/28/2016 TECHNIQUE: 1 view obtained. FINDINGS: LUNGS: No active pulmonary disease. PLEURA: No significant pleural effusion identified, no pneumothorax apparent. CARDIOVASCULAR: No aortic atherosclerotic calcification present. Normal cardiac size. No pulmonary vascular congestion. OSSEOUS STRUCTURES: No significant abnormalities. VISUALIZED UPPER ABDOMEN: Normal. OTHER FINDINGS: None. IMPRESSION: No active disease.
== END 2019-01-23 09:35 | disposition home or self-care (01) ==
LOC: ED 06:08
DX: J40 Bronchitis, not specified as acute or chronic (principal); I10 Essential (primary) hypertension; E11.9 Type 2 diabetes mellitus without complications; Z95.1 Presence of aortocoronary bypass graft